=== PATIENT | male | born 1990 | race Caucasian/White ===

== ENCOUNTER 2019-12-21 05:04 | Emergency (ER) | payer SELFPAY ==
[~2019-12-21] VITALS: Ht 185.4 cm; Wt 65.8 kg
[2019-12-21 05:05] VITALS: BP 104/57
--- NOTE | 2019-12-21 05:28 | NUR ---
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 PATIENT STATES THAT HE WOKE UP AND STARTING FEELING RIGHT ARM PAIN ON THE TRICEP REGION. PATIENT DENIES TRAUMA TO THE REGION. UNKNOWN WHAT CAUSE THE PAIN. PATIENT STATES HE TOOK NYQUIL WHEN HE STARTED HAVING PAIN. FULL RANGE OF MOTION AND SENSATION. RED BUMPS NOTED ON REGION OF PAIN. PATIENT IS AAOX4. NO SOB. BREATHING EVENLY AND UNLABORED ON ROOM AIR. CONNECTED TO THE MONITOR.
[2019-12-21] MEDS ORDERED: ONDANSETRON 4 MG TAB.RAPDIS ONE (05:39)
[2019-12-21] MEDS ORDERED: HYDROCODONE/APAP 10/325MG TABLET ONE (05:39)
[2019-12-21] MEDS ORDERED: CEPHALEXIN MONOHYDRATE 500 MG CAPSULE PO ONE (05:39)
[2019-12-21] MEDS ORDERED: TDAP [DIPH/PERTUSSIS/TET] 0.5 ML VIAL IM ONE (05:40)
[2019-12-21] MEDS: TDAP [DIPH/PERTUSSIS/TET] 0.5 ML VIAL IM ONE (05:50)
[2019-12-21] MEDS: HYDROCODONE/APAP 10/325MG TABLET PO ONE (05:51)
[2019-12-21] MEDS: CEPHALEXIN MONOHYDRATE 500 MG CAPSULE PO ONE (05:51)
[2019-12-21] MEDS: ONDANSETRON 4 MG TAB.RAPDIS SL ONE (05:51)
== END 2019-12-21 05:54 | disposition home or self-care (01) ==
LOC: ER 05:04
DX: T63.391A Toxic effect of venom of other spider, accidental (unintentional), initial encounter (principal); M79.601 Pain in right arm; Y92.89 Other specified places as the place of occurrence of the external cause
CPT/HCPCS: 99284; Q0162; 90715